=== PATIENT | female | born 1965 | race African-American/Black ===

== ENCOUNTER 2016-12-30 09:51 | Emergency (ER) | payer OTHER ==
[2016-12-30 09:57] VITALS: BP 157/106; BMI 30.7
--- NOTE | 2016-12-30 10:30 | DR.GENAD ---
HPI - PCP Primary Care Physician: lizy - Complaint/Symptoms Chief Complaint Doctors Comments: Patient was seen in August diagnosed with multilevel DJD of C-spine, lumbar spine and SI. She has been treatedm with tramadol. Chief Complaint:: pateint stated she has back pain that radiates down her right leg. she stated it started friday but got worse today. - Source History Provided: Patient - Mode of Arrival Mode of Arrival: Ambulatory - Timing Onset of Chief Complaint: 12/27/16 PMH - PMH Past Medical History: Yes Past Medical History: Asthma, CVA, Hypertension Past Surgical History: Yes Surgical History: , Cholecystectomy, Hysterectomy, Neurosurgery - Family History History of Family Medical Conditions: Yes Family Medical History: [place], Coronary Artery Disease, Hypertension - Social History Does patient currently use any type of tobacco product: No Have you used tobacco products in the last 12 months: No Type of Tobacco Use: None Does any household member use tobacco: No Alcohol Use: None Do you use any recreational Drugs:: No Lives With: Family Lives Where: Home - infectious screening In the last 2 months have you had wt loss of >10#?: NO Have you had fever, night sweats or hemotysis?: No Have you traveled outside the country in the last 6 months?: No Isolation: Standard ROS - Review of Systems Constitutional: No Symptoms Reported Eyes: No Symptoms Reported ENTM: No Symptoms Reported Respiratoy: No Symptoms Reported Cardiovascular: No Symptoms Reported Gastrointestinal/Abdominal: No Symptoms Reported Genitourinary: No Symptoms Reported Neurological: No Symptoms Reported Musculoskeletal: See HPI, Back Pain, Joint Pain Integumentary: No Symptoms Reported Hematologic/Lymphatic: No Symptoms Reported, See HPI Endocrine: No Symptoms Reported Psychiatric: No Symptoms Reported All Other Systems: Reviewed and Negative PE - Vital Signs Vitals: Blood Pressure 157/106 - General Limitations: No Limitations General Appearance: Alert, In Distress - Head Head Exam: Normal Inspection, Atraumatic - Eyes Eye exam: Normal Appearance, PERRL, EOMI - ENT ENT Exam: Normal Exam External Ear Exam: Normal External Inspection TM/Canal Exam: Bilateral Normal Nose Exam: Normal Nose Exam Mouth Exam: Normal Inspection Throat Exam: Normal Inspection - Neck Neck Exam: Normal Inspection - Chest Chest Inspection: Normal Inspection - Respiratory Respiratory Exam: Normal Lung Sounds Bilat Respiratory Exam: Bilateral Clear to Auscultation - Cardiovascular Cardiovascular Exam: Regular Rate, Normal Rhythm - Abdominal Exam Abdominal Exam: Normal Inspection Abdominal Tenderness: negative: RUQ, RLQ, LUQ, LLQ, Epigastrium, Suprapubic, Diffuse, Mild, Moderate, Severe, Other - Extremities Extremities Exam: Normal Inspection, Full ROM - Back Back Exam: Paraspinal Tenderness - Neurologic Neurological Exam: Alert, Oriented X3, CN II-XII Intact - Psychiatric Psychiatric Exam: Normal Affect, Normal Mood - Skin Skin Exam: Warm, Dry, Intact MDM - Additional Information Findings: Reviewed previous x rays : DJD - Diagnosis Discharge Problem: DJD (degenerative joint disease) of cervical spine Qualifiers: Spinal osteoarthritis complication: unspecified spinal osteoarthritis Qualified Code(s): M47.812 - Spondylosis without myelopathy or radiculopathy, cervical region Degenerative joint disease (DJD) of lumbar spine Qualifiers: Spinal osteoarthritis complication: with myelopathy Qualified Code(s): M47.16 - Other spondylosis with myelopathy, lumbar region - Discharge Plan Condition: Stable - Follow ups/Referrals Follow ups/Referrals: LEW GIMENEZ [Primary Care Provider] - 3 days - Instructions
[2016-12-30] MEDS ORDERED: TORADOL 60 MG VIAL IM ONE (10:42)
[2016-12-30] MEDS ORDERED: TORADOL 60 MG VIAL ONE (10:46)
[2016-12-30 10:54] LABS: BILIRUBIN,URINE NEGATIVE (NEGATIVE); BLOOD/HEMOGLOBIN,URINE 1+ (NEGATIVE); GLUCOSE, URINE NEGATIVE (NEGATIVE); KETONES,URINE NEGATIVE (NEGATIVE); LEUKOCYTE ESTERASE ,URINE 3+ (NEGATIVE); NITRITES,URINE NEGATIVE (NEGATIVE); PROTEIN,URINE 1+ (NEGATIVE); UROBILINOGEN,URINE 1+ (NORMAL)
[2016-12-30 11:05] LABS: AMORPHOUS SEDIMENT,UR TRACE /HPF (NEGATIVE); APPEARANCE,URINE CLEAR (CLEAR); BACTERIA,URINE NEGATIVE /HPF (NEGATIVE); COLOR,URINE YELLOW (YELLOW); MUCUS,URINE FEW /HPF (NEGATIVE); RBC,URINE RARE /HPF (NEGATIVE); SQUAMOUS EPITHELIAL CELL,UR FEW /HPF (NEGATIVE)
== END 2016-12-30 11:12 | disposition home or self-care (01) ==
LOC: ER 09:51
DX: M47.812 Spondylosis without myelopathy or radiculopathy, cervical region (principal); M47.816 Spondylosis without myelopathy or radiculopathy, lumbar region
CPT/HCPCS: 81001; 96372; 99282; J1885

== ENCOUNTER → 2017-12-12 | Outpatient (CLI) | payer OTHER ==
--- NOTE | 2017-12-16 09:23 | MRI ---
History: Right knee pain. Meniscal injury. Meniscal tear. EXAM: NON CONTRAST MRI EXAM OF THE RIGHT KNEE JOINT. Technique: Multisequence and multiplanar T1 and T2 weighted sequences of the right knee were obtained without the administration of IV paramagnetic contrast at 1.5 Gar[place]. Comparison: None. Findings: There is a moderate-sized knee joint effusion. There is moderate lateral patellar tracking without ev idence for patellar dislocation on this exam. No high-grade patellar facet chondromalacia seen. There is grade 2 articular cartilage loss seen in the femorotibial compartments bilaterally. Bone marrow e monique/early subchondral cyst formation is seen within the lateral tibial plateau. There is mild femoro tibial compartment osteoarthritis with marginal early osteophytes observed. There is grade 3 chondrom alacia seen within the anterior/inferior femoral trochlea and central femoral condyles on images numb er 8 through 16 of series 501. There is a particular soft tissue swelling edema. There is chronic muc oid degeneration of the otherwise intact ACL. The PCL is intact. The collateral ligaments are intact as well. There is a complex, predominantly horizontal, tear of the body/posterior horn of the medial meniscus observed. There is an oblique tear of the posterior horn of the lateral meniscus; both of wh ich appear degenerative. No bucket-handle component is seen. There is slight lateral tracking of the patella without evidence for patellar dislocation. There is distal quadriceps peritendinitis and dist al and proximal patellar tendinosis. Prepatellar edema is also seen. No other significant knee joint injuries or abnormalities are identified on the exam. No aggressive or erosive bony lesion or soft ti ssue lesion is evident. Impression: Complex tear of the posterior horn, medial meniscus. Oblique tear of the posterior horn, lateral meniscus. 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 Grade 2 (weight-bearing sector) femorotibial chondromalacia with bone marrow edema seen in the latera l tibial plateau which appears chondromalacia related. Moderate-sized knee joint effusion. No acute fracture seen. Prepatellar edema and distal quadriceps peritendinitis. Mucoid degeneration of the otherwise intact ACL. Reported By:
== END | disposition home or self-care (01) ==
LOC: RAD 12:27
PROVIDERS: ATTEND Orthopaedic Surgery
DX: S83.231A Complex tear of medial meniscus, current injury, right knee, initial encounter (principal); S83.281A Other tear of lateral meniscus, current injury, right knee, initial encounter; X58.XXXA Exposure to other specified factors, initial encounter; M94.261 Chondromalacia, right knee; M25.461 Effusion, right knee
CPT/HCPCS: 73721

== ENCOUNTER 2019-10-20 16:01 | Observation (INO) ==
[2019-10-20 16:07] VITALS: BMI 29.0
[2019-10-20] MEDS ORDERED: NS 1000 ML 1,000 ML IV ONE ×2 (16:17→18:29)
[2019-10-20] MEDS ORDERED: ZOFRAN INJ 4 MG VIAL IVP ONE (16:17)
--- NOTE | 2019-10-20 16:25 | DR.HEADACH ---
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 4 day hx of subjective fever, headache, generalized weakness and multiple myalgias. + fatigue. Decreased appetite. Pain is diffuse, aching, non radiating, constant. No focal numbness/ weakness, visual/ speech changes, neck pain, back pain. No urinary sx's, diarrhea, stool changes. Complaint/Symptoms Chief Complaint:: PT STATES SHE HAS A REALLY BAD HEADACHE. STATES SHE HAS NO TASTE AND NO APPETITE. STATES SHE HASN'T ATE ANYTHING IN 4 DAYS. Source History Provided: Patient Mode of Arrival Mode of Arrival: Wheelchair Timing Onset of Chief Complaint: 10/17/19 PMH PMH Past Medical History: Yes Past Medical History: Asthma, CVA and Hypertension Past Surgical History: Yes Surgical History: , Cholecystectomy, Hysterectomy and Neurosurgery Family History History of Family Medical Conditions: Yes Family Medical History: [place], Coronary Artery Disease and Hypertension Social History Do you use any recreational Drugs:: No Lives With: Mom Lives Where: Home infectious screening Have you traveled outside the country in the last 6 months?: No Isolation: Standard ROS Review of Systems Constitutional: Chills, Fever, Malaise and Weakness Eyes: negative Eye Pain and Blurred Vision ENTM: No Symptoms Reported Respiratoy: No Symptoms Reported Cardiovascular: No Symptoms Reported Gastrointestinal/Abdominal: No Symptoms Reported Genitourinary: No Symptoms Reported Neurological: Headache; negative Numbness, Paresthesia, Pre-existing Deficit, Tremors, Weakness and Problems Walking Musculoskeletal: No Symptoms Reported Integumentary: No Symptoms Reported Hematologic/Lymphatic: No Symptoms Reported Endocrine: No Symptoms Reported Psychiatric: No Symptoms Reported All Other Systems: Reviewed and Negative PE Vital Signs Vitals: Temperature 98.2 F Pulse Rate 57 Respiratory Rate 17 Blood Pressure [Left Arm] 165/98 Blood Pressure 130/73 O2 Sat by Pulse Oximetry 99 General Limitations: No Limitations General Appearance: Alert and In No Apparent Distress Head Head Exam: Normal Inspection Eyes Eye exam: Normal Appearance Eyelids: Normal Inspection: Bilateral Pupils: Regular, Round: Bilateral Sclera/Conjunctival: Normal Inspection: Bilateral ENT ENT Exam: Normal Exam External Ear Exam: Normal External Inspection TM/Canal Exam: Bilateral: Normal Nose Exam: Normal Nose Exam Mouth Exam: Normal Inspection Teeth Exam: Normal Inspection Throat Exam: Normal Inspection Neck Neck Exam: Normal Inspection, Full ROM and Trachea Midline; negative Tenderness and Meningismus Chest Chest Inspection: Normal Inspection Respiratory Respiratory Exam: Normal Lung Sounds Bilat Respiratory Exam: Bilateral: Clear to Auscultation Cardiovascular Cardiovascular Exam: Regular Rate Abdominal Exam Abdominal Exam: Normal Inspection, Normal Bowel Sounds and Soft Extremities Extremities Exam: Normal Inspection Back Back Exam: Normal Inspection Neurologic Neurological Exam: Alert and Oriented X3 Psychiatric Psychiatric Exam: Normal Affect and Normal Mood Skin Skin Exam: Warm, Dry, Intact and Normal Color Other Exam Other Exam: negative kernigs and brudzinskis. neck supple, no menigismus. MDM Additional Information Obtained Additional Information Obtained From: Family Differential Diagnosis Differential Diagnosis: Considerations may include:: Migraine, CVA, Fever- Induced, Epidural Hemorrhage, Intracerebral Hemorrhage, Mass Lesion and Meningitis COURSE Treatment Treatment: 53 yo f w/ prev hx of cva and benign brain tumor s/op craniotomy in the past presents w/ MORRIS in setting of recent uri. afebrile. No meningismus. Neurologically intact. Leukopenia noted. LAURA on bmp. CT head/ cxr negative. No indication for lp at this time. Flu swab negative. 2L NSS given in ED. Will admit patient to obs for laura. Education/Counseling Education/Counseling: Patient and Family Educated On: Treatment, Diagnosis, Prognosis and Needs for Follow Up ROR Labs Reviewed Result Diagrams: 10/20/19 16:35 10/20/19 16:35 Laboratory: WBC 1.8 X10^3/uL (3.6-10.0) L* 10/20/19 16:35 RBC 4.85 X10^6/uL (3.5-5.4) 10/20/19 16:35 Hgb 13.7 g/dL (12.0-16.0) 10/20/19 16:35 Hct 40.4 % (36.0-47.0) 10/20/19 16:35 MCV 83.5 fL (80.0-100.0) 10/20/19 16:35 MCH 28.3 pg (27.0-34.0) 10/20/19 16:35 MCHC 33.9 g/dL (33.0-35.0) 10/20/19 16:35 RDW 14.7 % (11.6-16.5) 10/20/19 16:35 Plt Count 132 X10^3/uL (150.0-450.0) L 10/20/19 16:35 MPV 8.5 fL (7.4-11.0) 10/20/19 16:35 Neut % (Auto) 22.5 % (42.0-75.0) L 10/20/19 16:35 Lymph % (Auto) 57.8 % (21.0-51.0) H 10/20/19 16:35 [place] % (Auto) 18.3 % (0.0-13.0) H 10/20/19 16:35 Eos % (Auto) 0.1 % (0.9-2.9) L 10/20/19 16:35 Baso % (Auto) 1.3 % (0.2-1.0) H 10/20/19 16:35 Neut # (Auto) 0.4 x10^3/uL (2.2-4.8) L 10/20/19 16:35 Lymph # (Auto) 1.0 X10^3/uL (1.3-2.9) L 10/20/19 16:35 [place] # (Auto) 0.3 x10^3/uL (0.3-0.8) 10/20/19 16:35 Eos # (Auto) 0.0 x10^3/uL (0.0-0.2) 10/20/19 16:35 Baso # (Auto) 0.0 X10^3/uL (0.0-0.1) 10/20/19 16:35 Absolute Nucleated RBC 0.0 /100WBC 10/20/19 16:35 Sodium 141 mmol/L (136-145) 10/20/19 16:35 Corrected Sodium TNP 10/20/19 16:35 Potassium 3.4 mmol/L (3.5-5.1) L 10/20/19 16:35 Chloride 103 mmol/L (98-107) 10/20/19 16:35 Carbon Dioxide 28.2 mmol/L (21-32) 10/20/19 16:35 BUN 24 mg/dL (7-18) H 10/20/19 16:35 Creatinine 1.86 mg/dL (0.55-1.02) H 10/20/19 16:35 Est GFR (MDRD) Af Amer 36 (>60) L 10/20/19 16:35 Est GFR (MDRD) Non-Af 30 (>60) L 10/20/19 16:35 Glucose 98 mg/dL (65-99) 10/20/19 16:35 Calcium 8.6 mg/dL (8.5-10.1) 10/20/19 16:35 Corrected Calcium TNP 10/20/19 16:35 Total Bilirubin 0.40 mg/dL (0.2-1.0) 10/20/19 16:35 AST 37 Units/L (15-37) 10/20/19 16:35 ALT 36 Units/L (12-78) 10/20/19 16:35 Alkaline Phosphatase 134 Units/L (46-116) H 10/20/19 16:35 Total Protein 7.0 g/dL (6.4-8.2) 10/20/19 16:35 Albumin 3.8 g/dL (3.4-5.0) 10/20/19 16:35 Globulin 3.2 g/dL (2.5-4.5) 10/20/19 16:35 Albumin/Globulin Ratio 1.2 Ratio (1.1-2.1) 10/20/19 16:35 HCG, Qual Negative <10 mIU/mL 10/20/19 16:35 Specimen Type Clean catch urine 10/20/19 19: Urine Color Yellow (YELLOW) 10/20/19 19: Urine Appearance Slightly hazy (CLEAR) 10/20/19 19:27 Urine pH 5.0 (5.0 - 8.0) 10/20/19 19: Ur Specific [place] 1.025 (1.000-1.030) 10/20/19 19: Urine Protein 2+ (NEGATIVE) 10/20/19 19: Urine Glucose (UA) Negative (NEGATIVE) 10/20/19 19: Urine Ketones 1+ (NEGATIVE) 10/20/19 19: Urine Occult Blood 1+ (NEGATIVE) 10/20/19 19: Urine Nitrite Negative (NEGATIVE) 10/20/19 19: Urine Bilirubin Negative (NEGATIVE) 10/20/19 19:27 Urine Urobilinogen Normal (NORMAL) 10/20/19 19:27 Ur Leukocyte Esterase 2+ (NEGATIVE) 10/20/19 19:27 Urine RBC 5-10 /HPF (0-3) A 10/20/19 19:27 Urine WBC 10-20 /HPF (0-5) A 10/20/19 19:27 Ur Squamous Epith Cells Few /HPF (NEGATIVE) 10/20/19 19:27 Urine Bacteria 1+ /HPF (NEGATIVE) 10/20/19 19:27 Hyaline Casts Few /LPF (NEGATIVE) 10/20/19 19:27 Urine Mucus Few /HPF (NEGATIVE) 10/20/19 19:27 Ur Culture Indicated? Yes/culture set up 10/20/19 19:27 Urine Opiates Screen Negative (NEG=<300) 10/20/19 19:27 Urine Methadone Screen Negative (NEG=<300) 10/20/19 19:27 Ur Barbiturates Screen Negative (NEG=<200) 10/20/19 19:27 Ur Phencyclidine Scrn Negative (NEG=<25) 10/20/19 19:27 Ur Amphetamines Screen Negative (NEG=<1000) 10/20/19 19:27 U Benzodiazepines Scrn Negative (NEG=<200) 10/20/19 19:27 Urine Cocaine Screen Negative (NEG=<300) 10/20/19 19:27 U Marijuana (THC) Screen Negative (NEG=<50) 10/20/19 19:27 Ethyl Alcohol mg/dL < 3 mg/dL (0-19.9) 10/20/19 16:35 Influenza Type A (PCR) Negative (NEGATIVE) 10/20/19 17:00 Influenza Type B (PCR) Negative (NEGATIVE) 10/20/19 17:00 Opioid Opioid Risk Tool Total: 0 Total Score Risk Category: Low Risk Copyright: Jordan BANEGAS predicting aberrant behaviors Diagnosis Discharge Problem: LAURA (acute kidney injury), Hypovolemia URI (upper respiratory infection) Qualifiers: URI type: unspecified viral URI Qualified Code(s): J06.9 - Acute upper respiratory infection, unspecified
[2019-10-20] MEDS ORDERED: NS 1000 ML 1,000 ML ONE ×3 (16:48→20:28)
[2019-10-20] MEDS ORDERED: ZOFRAN INJ 4 MG VIAL ONE (16:48)
[2019-10-20 16:51] LABS: BASOPHILS % (AUTO) 1.3 % (0.2-1.0); EOSINOPHILS % (AUTO) 0.1 % (0.9-2.9); HEMATOCRIT 40.4 % (36.0-47.0); HEMOGLOBIN 13.7 g/dL (12.0-16.0); LYMPHOCYTES % (AUTO) 57.8 % (21.0-51.0); MEAN CORPUSCULAR HEMOGLOBIN 28.3 pg (27.0-34.0); MEAN CORPUSCULAR HGB CONC 33.9 g/dL (33.0-35.0); MEAN CORPUSCULAR VOLUME 83.5 fL (80.0-100.0); MEAN PLATELET VOLUME 8.5 fL (7.4-11.0); MONOCYTES # (AUTO) 0.3 x10^3/uL (0.3-0.8); MONOCYTES % (AUTO) 18.3 % (0.0-13.0); NEUTROPHILS # (AUTO) 0.4 x10^3/uL (2.2-4.8); NEUTROPHILS % (AUTO) 22.5 % (42.0-75.0); PLATELET COUNT 132 X10^3/uL (150.0-450.0); RED BLOOD COUNT 4.85 X10^6/uL (3.5-5.4); RED CELL DISTRIBUTION WIDTH 14.7 % (11.6-16.5)
[2019-10-20 17:00] LABS: WHITE BLOOD COUNT 1.8 X10^3/uL (3.6-10.0)
--- NOTE | 2019-10-20 17:00 | RAD ---
HISTORYChest painSTUDYPortable AP chestCOMPARISONNoneFINDINGSThe lungs are grossly clear and the heart size is mildly enlarged. There is no edema or effusion demonstrated. No bony abnormality is demonstrated.IMPRESSIONMild cardiomegaly, clear lungs.Electronically signed by: MANDA HASSAN (Oct 20, 2019 16:59:28)
[2019-10-20 17:04] LABS: SERUM PREGNANCY TEST, QUAL NEGATIVE <10 mIU/mL
[2019-10-20 17:05] LABS: ALANINE AMINOTRANSFERASE 36 Units/L (12-78); ALBUMIN 3.8 g/dL (3.4-5.0); ALKALINE PHOSPHATASE 134 Units/L (46-116); ASPARTATE AMINO TRANSFERASE 37 Units/L (15-37); BLOOD ALCOHOL < 3 mg/dL (0-19.9); BLOOD UREA NITROGEN 24 mg/dL (7-18); CALCIUM 8.6 mg/dL (8.5-10.1); CARBON DIOXIDE 28.2 mmol/L (21-32); CHLORIDE 103 mmol/L (98-107); CREATININE 1.86 mg/dL (0.55-1.02); SODIUM 141 mmol/L (136-145); eGFR NON BLACK RACES 30 (>60)
--- NOTE | 2019-10-20 17:12 | CT ---
HISTORYAltered mental status.STUDYBRAIN W/O CONCOMPARISONNone.TECHNIQUEMultiple axial images of the head were obtained from the skull base to the vertex without administration of IV contrast. Sagittal and coronal reformatted images were performed. Automated exposure control (AEC) was utilized to adjust the MA and/or kV.FINDINGSThe sulci, cisterns and ventricles are age appropriate. There has been a left pterional craniotomy. There is a small focus of encephalomalacia in the left frontal lobe. There is an area of encephalomalacia, likely from prior anterior temporal lobectomy.There is no lacunar infarct in the right basal ganglia. There is no evidence of acute territorial infarction, hemorrhage, mass, mass effect, or midline shift. There are no abnormal intra-axial or extra-axial fluid collections.There is no evidence of acute osseous abnormality. There is no significant soft tissue swelling. Visualized paranasal sinuses and mastoid air cells are predominatelyIMPRESSION1. Postsurgical change from left pteryonal cranieotomy with encephalomalacia in the left frontal and anterior temporal lobes.?2. Chronic infarct in the right basal ganglia.Electronically signed by: CONNER MOON (Oct 20, 2019 17:11:04)
[2019-10-20 19:43] LABS: BILIRUBIN,URINE NEGATIVE (NEGATIVE); BLOOD/HEMOGLOBIN,URINE 1+ (NEGATIVE); GLUCOSE, URINE NEGATIVE (NEGATIVE); KETONES,URINE 1+ (NEGATIVE); LEUKOCYTE ESTERASE ,URINE 2+ (NEGATIVE); NITRITES,URINE NEGATIVE (NEGATIVE); PROTEIN,URINE 2+ (NEGATIVE); UROBILINOGEN,URINE NORMAL (NORMAL)
[2019-10-20 19:45] LABS: APPEARANCE,URINE SLIGHTLY HAZY (CLEAR); COLOR,URINE YELLOW (YELLOW)
[2019-10-20 19:50] LABS: BACTERIA,URINE 1+ /HPF (NEGATIVE); HYALINE CASTS, URINE FEW /LPF (NEGATIVE); MUCUS,URINE FEW /HPF (NEGATIVE); SQUAMOUS EPITHELIAL CELL,UR FEW /HPF (NEGATIVE)
[2019-10-20] MEDS ORDERED: NS 100 ML IV + SPIKE MINIBAG* 100 ML IV ONE (20:25)
[2019-10-20] MEDS ORDERED: ROCEPHIN VIAL 1 GRAM ONE (20:25)
[2019-10-20] MEDS: ROCEPHIN VIAL 1 GRAM 1 G in NS 100 ML IV + SPIKE MINIBAG* 100 ML IV SCH (20:35)
[2019-10-20] MEDS: NS 1000 ML 1,000 ML IV SCH (21:30)
[2019-10-21 06:23] LABS: ALANINE AMINOTRANSFERASE 25 Units/L (12-78); ALKALINE PHOSPHATASE 104 Units/L (46-116); ASPARTATE AMINO TRANSFERASE 31 Units/L (15-37); BLOOD UREA NITROGEN 16 mg/dL (7-18); CALCIUM 7.6 mg/dL (8.5-10.1); CHLORIDE 108 mmol/L (98-107); COR CA(FOR HYPOALB) 8.4 mg/dL (8.5-10.1); CREATININE 1.27 mg/dL (0.55-1.02); SODIUM 143 mmol/L (136-145); TOTAL PROTEIN 5.7 g/dL (6.4-8.2); eGFR NON BLACK RACES 47 (>60)
[2019-10-21] MEDS: ROCEPHIN VIAL 1 GRAM 1 G in NS 100 ML IV + SPIKE MINIBAG* 100 ML IV SCH (08:11)
[2019-10-21] MEDS: PREDNISONE TAB 5 MG PO SCH (10:25)
[2019-10-21] MEDS: LOVENOX INJ 40 MG SYR SC SCH (11:18)
[2019-10-21] MEDS: TUSSIONEX PENNKINETIC SUSP PO PRN ×2 (11:19→23:30)
[2019-10-21] MEDS: ACCUNEB 1.25 MG NEBULE NEB SCH ×3 (13:43→17:14)
[2019-10-21] MEDS: PULMICORT NEB TX 0.5 MG NEB SCH ×2 (13:43→20:25)
[2019-10-21] MEDS: NS 1000 ML 1,000 ML IV SCH ×2 (15:28→23:00)
[2019-10-21] MEDS ORDERED: TYLENOL 325 MG TAB PO PRN (15:31)
[2019-10-22] MEDS: ACCUNEB 1.25 MG NEBULE NEB SCH ×4 (01:13→17:07)
[2019-10-22 05:24] LABS: BASOPHILS % (AUTO) 0.2 % (0.2-1.0); EOSINOPHILS % (AUTO) 0.2 % (0.9-2.9); HEMATOCRIT 32.8 % (36.0-47.0); HEMOGLOBIN 11.2 g/dL (12.0-16.0); LYMPHOCYTES # (AUTO) 1.9 X10^3/uL (1.3-2.9); LYMPHOCYTES % (AUTO) 75.7 % (21.0-51.0); MEAN CORPUSCULAR HEMOGLOBIN 28.4 pg (27.0-34.0); MEAN CORPUSCULAR VOLUME 83.5 fL (80.0-100.0); MEAN PLATELET VOLUME 8.4 fL (7.4-11.0); MONOCYTES # (AUTO) 0.2 x10^3/uL (0.3-0.8); MONOCYTES % (AUTO) 9.4 % (0.0-13.0); NEUTROPHILS # (AUTO) 0.4 x10^3/uL (2.2-4.8); NEUTROPHILS % (AUTO) 14.5 % (42.0-75.0); PLATELET COUNT 115 X10^3/uL (150.0-450.0); RED BLOOD COUNT 3.92 X10^6/uL (3.5-5.4); RED CELL DISTRIBUTION WIDTH 14.4 % (11.6-16.5); WHITE BLOOD COUNT 2.5 X10^3/uL (3.6-10.0)
[2019-10-22 05:37] LABS: ALANINE AMINOTRANSFERASE 24 Units/L (12-78); ALKALINE PHOSPHATASE 95 Units/L (46-116); ASPARTATE AMINO TRANSFERASE 26 Units/L (15-37); BLOOD UREA NITROGEN 6 mg/dL (7-18); CALCIUM 7.5 mg/dL (8.5-10.1); CARBON DIOXIDE 28.9 mmol/L (21-32); CHLORIDE 108 mmol/L (98-107); COR CA(FOR HYPOALB) 8.3 mg/dL (8.5-10.1); CREATININE 0.98 mg/dL (0.55-1.02); SODIUM 145 mmol/L (136-145); TOTAL PROTEIN 5.6 g/dL (6.4-8.2); eGFR NON BLACK RACES > 60 (>60)
[2019-10-22 06:15] LABS: PLATELET MORPHOLOGY COMMENT NORMAL (NORMAL)
[2019-10-22] MEDS: NS 1000 ML 1,000 ML IV SCH ×4 (06:24→21:55)
[2019-10-22] MEDS: PULMICORT NEB TX 0.5 MG NEB SCH ×2 (09:43→20:34)
[2019-10-22] MEDS: LOVENOX INJ 40 MG SYR SC SCH (10:15)
[2019-10-22] MEDS: K-DUR TAB 20 MEQ PO SCH ×2 (10:16→21:56)
[2019-10-22] MEDS: ROCEPHIN VIAL 1 GRAM 1 G in NS 100 ML IV + SPIKE MINIBAG* 100 ML IV SCH (10:16)
[2019-10-22] MEDS: PREDNISONE TAB 5 MG PO SCH (10:16)
[2019-10-22] MEDS: TUSSIONEX PENNKINETIC SUSP PO PRN (21:57)
[2019-10-23] MEDS: ACCUNEB 1.25 MG NEBULE NEB SCH ×3 (00:30→11:58)
[2019-10-23] MEDS: NS 1000 ML 1,000 ML IV SCH (01:19)
--- NOTE | 2019-10-23 06:35 | RAD ---
HISTORYFinal pneumoniaSTUDYChest, AP and lateral [id number]/2020FINDINGSContinued borderline to mild cardiac enlargement. The upper lungs ar e clear. Seen best on lateral view there is a basal infiltrate, probably in the right lower lung. No discrete mass, pleural fluid or pneumothorax seen.IMPRESSIONStable cardiac prominence. Right basal in filtrate consistent with focal pneumonia.Electronically signed by: BIN HOPKINS (Oct 23, 2019 06:33 :49)
[2019-10-23 06:51] LABS: BASOPHILS % (AUTO) 0.5 % (0.2-1.0); EOSINOPHILS % (AUTO) 0.5 % (0.9-2.9); HEMATOCRIT 33.5 % (36.0-47.0); HEMOGLOBIN 11.6 g/dL (12.0-16.0); LYMPHOCYTES # (AUTO) 2.1 X10^3/uL (1.3-2.9); LYMPHOCYTES % (AUTO) 66.1 % (21.0-51.0); MEAN CORPUSCULAR HEMOGLOBIN 28.5 pg (27.0-34.0); MEAN CORPUSCULAR HGB CONC 34.6 g/dL (33.0-35.0); MEAN CORPUSCULAR VOLUME 82.3 fL (80.0-100.0); MEAN PLATELET VOLUME 8.7 fL (7.4-11.0); MONOCYTES # (AUTO) 0.2 x10^3/uL (0.3-0.8); MONOCYTES % (AUTO) 7.1 % (0.0-13.0); NEUTROPHILS # (AUTO) 0.8 x10^3/uL (2.2-4.8); NEUTROPHILS % (AUTO) 25.8 % (42.0-75.0); PLATELET COUNT 158 X10^3/uL (150.0-450.0); RED BLOOD COUNT 4.07 X10^6/uL (3.5-5.4); RED CELL DISTRIBUTION WIDTH 14.5 % (11.6-16.5); WHITE BLOOD COUNT 3.1 X10^3/uL (3.6-10.0)
[2019-10-23 06:59] LABS: ALANINE AMINOTRANSFERASE 26 Units/L (12-78); ALBUMIN 3.2 g/dL (3.4-5.0); ALKALINE PHOSPHATASE 103 Units/L (46-116); ASPARTATE AMINO TRANSFERASE 27 Units/L (15-37); BLOOD UREA NITROGEN 2 mg/dL (7-18); CALCIUM 7.8 mg/dL (8.5-10.1); CHLORIDE 107 mmol/L (98-107); COR CA(FOR HYPOALB) 8.4 mg/dL (8.5-10.1); CREATININE 0.79 mg/dL (0.55-1.02); SODIUM 144 mmol/L (136-145); TOTAL PROTEIN 5.9 g/dL (6.4-8.2); eGFR NON BLACK RACES > 60 (>60)
[2019-10-23 08:08] LABS: PLATELET MORPHOLOGY COMMENT NORMAL (NORMAL)
[2019-10-23] MEDS ORDERED: K-DUR TAB 20 MEQ PO PRN (08:33)
[2019-10-23] MEDS ORDERED: MICRO K EXTEN CAP 10 MEQ PO PRN (08:33)
[2019-10-23] MEDS ORDERED: POTASSIUM CHLORIDE LIQ 20 MEQ UDC PO PRN (08:33)
[2019-10-23] MEDS ORDERED: POTASSIUM CHL 40 MEQ/NS 0.45% 500 ML IV PRN (08:33)
[2019-10-23] MEDS ORDERED: POTASSIUM CHL 60 MEQ/NS 0.45% 500 ML IV PRN (08:33)
[2019-10-23] MEDS ORDERED: K-RIDER 10 MEQ/NS 100 ML 10 MEQ/100 ML BAG IV PRN (08:33)
[2019-10-23] MEDS ORDERED: KLOR-CON PO PRN (08:33)
[2019-10-23] MEDS: PULMICORT NEB TX 0.5 MG NEB SCH (08:59)
[2019-10-23] MEDS: K-DUR TAB 20 MEQ PO SCH (10:01)
[2019-10-23] MEDS: PREDNISONE TAB 5 MG PO SCH (10:02)
[2019-10-23] MEDS: LOVENOX INJ 40 MG SYR SC SCH (10:02)
[2019-10-23] MEDS: ROCEPHIN VIAL 1 GRAM 1 G in NS 100 ML IV + SPIKE MINIBAG* 100 ML IV SCH (10:02)
[2019-10-23] MEDS: MAGNESIUM SULFATE 1 GRAM/100 mL PREMIX 1 GM/100 ML BAG IV PRN ×2 (10:04→11:34)
[2019-10-23 13:57] VITALS: BP 162/88
== END 2019-10-23 14:30 | disposition home or self-care (01) ==
LOC: MED/SURG 16:01 → ER 16:01 → MED/SURG 21:28
PROVIDERS: ADMIT Obstetrics & Gynecology Obstetrics; ATTEND Obstetrics & Gynecology Obstetrics
DX: K52.9 Noninfective gastroenteritis and colitis, unspecified; N28.9 Disorder of kidney and ureter, unspecified; E86.1 Hypovolemia; J12.9 Viral pneumonia, unspecified; J45.909 Unspecified asthma, uncomplicated; R51 Headache
CPT/HCPCS: 36415; 70450; 71010; 71020; 71045; 71046; 80053; 80307; 80320; 81001; 83735; 84703; 85025; 87086; 87502; 94640; 94760; 96365; 96367; 96374; 96375; 99284; A4216; A4222; G0378; G0434; G6040; J0696; J1650; J2405; J3475; J3490; J7030; J7050; J7512; J7613; J7626